=== PATIENT | female | born 1990 | race African-American/Black ===

== ENCOUNTER 2016-09-29 03:05 | Inpatient (IN) | payer MEDICAID ==
[2016-09-29] MEDS ORDERED: Sodium Chloride 0.9% 10 ML Syringe FLUSH PRN (03:48)
[2016-09-29] MEDS ORDERED: Sodium Chloride 0.9% 2.5 ML Syringe FLUSH PRN (03:48)
[2016-09-29] MEDS ORDERED: Methylergonovine 0.2 MG/1 ML Amp IM PRN (03:48)
[2016-09-29] MEDS ORDERED: Nalbuphine 10 MG/1 ML Vial IVPUSH PRN (03:48)
[2016-09-29] MEDS ORDERED: Butorphanol 1 MG/ML SDV IVPUSH PRN (03:48)
[2016-09-29] MEDS ORDERED: Lidocaine 1% 50 ML MDV INJECT PRN (03:48)
[2016-09-29] MEDS ORDERED: Carboprost Tromethamine 250 MCG/1 ML Amp IM PRN (03:48)
[2016-09-29] MEDS ORDERED: Water For Irrigation,Sterile 1,000 ML Container IRR PRN (03:48)
[2016-09-29] MEDS ORDERED: Misoprostol 200 MCG Tab PO PRN (03:48)
[2016-09-29] MEDS ORDERED: Lactated Ringers 1,000 ML IV SCH (04:00)
[2016-09-29] MEDS ORDERED: Oxytocin/Lactated Ringers 30 UNIT/500 ML BAG IV SCH (04:59)
[2016-09-29] MEDS ORDERED: Oxytocin/Lactated Ringers 30 UNIT/500 ML BAG ONE (08:13)
--- NOTE | 2016-09-29 09:01 | PCM.LDHP ---
L&D History of Present Illness - General Date of Service: 09/29/16 Admit Problem/Dx: Patient Status Order with Admit Dx/Problem 09/29/16 03:48 Patient Status [ADT] Routine Patient Status: Refer to Observation Admission Diagnosis/Problem: - planned Reason for Admit: active labor [facility] Nurse Unit Type: Labor and Delivery Admitting Physician: Sebastian Conley Attending Physician: Sebastian Conley Admission Diagnosis/Problem Admission Diagnosis/Problem - planned Source of Information: Patient History Limitations: Reports: No limitations - History of Present Illness Improves with: Reports: None Worsens with: Reports: None Associated Symptoms: Reports: N - Related Data Allergies/Adverse Reactions: Allergies Allergy/AdvReac Type Severity Reaction Status Date / Time No Known Allergies Allergy Verified 09/29/16 03:21 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: - Past Surgical History GI Surgical History: Reports: Appendectomy Social & Family History - Family History OBGYN: Reports: Endocrine/Metabolic: Reports: Diabetes, type II - Tobacco Use Smoking Status *Q: Never Smoker Second Hand Smoke Exposure: No - Caffeine Use Caffeine Use: Reports: None - Recreational Drug Use Recreational Drug Use: No H&P Review of Systems - Review of Systems: Review Of Systems: See Below General: Reports: no symptoms HEENT: Reports: no symptoms Pulmonary: Reports: no symptoms Cardiovascular: Reports: no symptoms Gastrointestinal: Reports: No symptoms Genitourinary: Reports: no symptoms Musculoskeletal: Reports: no symptoms Skin: Reports: no symptoms Psychiatric: Reports: no symptoms Neurological: Reports: no symptoms Hematologic/Lymphatic: Reports: no symptoms Immunologic: Reports: no symptoms L&D Exam - Exam Exam: See Below - Vital Signs Weight: 67.585 kg - OB Specific Fundal Height in cm: 36 Contraction Intensity: Moderate to Strong movement: active heart tones: present Presentation: Vertex - Patient Data Lab Results last 24 hrs: Laboratory Results - last 24 hr 09/29/16 09/29/16 09/29/16 Range/Units 03:02 04:05 04:05 WBC 5.37 (4.0-11.0) K/uL RBC 3.37 L (4.30-5.90) M/uL Hgb 9.6 L (12.0-16.0) g/dL Hct 28.5 L (36.0-46.0) % MCV 84.6 (80.0-98.0) fL MCH 28.5 (27.0-32.0) pg MCHC 33.7 (31.0-37.0) g/dL RDW Std Deviation 41.0 (28.0-62.0) fl RDW Coeff of [place] 14 (11.0-15.0) % Plt Count 177 (150-400) K/uL MPV 9.30 (7.40-12.00) fL Nucleated RBC % 0.0 /100WBC Nucleated RBCs # 0 K/uL Membrane Rupture POSITIVE Blood Type A POSITIVE Antibody Screen NEGATIVE Result Diagrams: 09/29/16 04:05 Problem List Initiated/Reviewed/Updated: Yes Orders Last 24hrs: Active Orders 24 hr Category Date Time Status Patient Status [ADT] Routine ADT 09/29/16 03:48 Active Heart Tones [RC] CONTINUOUS Care 09/29/16 03:48 Active Non Stress Test [RC] PER UNIT ROUTINE Care 09/29/16 03:22 Active Non Stress Test [RC] PER UNIT ROUTINE Care 09/29/16 03:48 Active May Shower [RC] ASDIRECTED Care 09/29/16 03:48 Active Notify Provider [RC] PRN Care 09/29/16 03:48 Active Up ad [place] [RC] ASDIRECTED Care 09/29/16 03:22 Active Up ad [place] [RC] ASDIRECTED Care 09/29/16 03:48 Active Vaginal Exam [RC] Click To Edit Care 09/29/16 03:22 Active Vaginal Exam [RC] PRN Care 09/29/16 03:48 Active Vital Signs [RC] PER UNIT ROUTINE Care 09/29/16 03:22 Active Vital Signs [RC] PER UNIT ROUTINE Care 09/29/16 03:48 Active Butorphanol [Stadol] Med 09/29/16 03:48 Active 1 mg IVPUSH Q1H PRN Carboprost Tromethamine [Hemabate DS] Med 09/29/16 03:48 Active 250 mcg IM ASDIRECTED PRN Lactated Ringers [Ringers, Lactated] 1,000 ml Med 09/29/16 04:00 Active IV ASDIRECTED Lidocaine 1% [Xylocaine 1%] Med 09/29/16 03:48 Active 50 ml INJECT .ONCE PRN Methylergonovine [Methergine] Med 09/29/16 03:48 Active 0.2 mg IM ASDIRECTED PRN Misoprostol [Cytotec] Med 09/29/16 03:48 Active 200 mcg PO .ONCE PRN Sodium Chloride 0.9% [Saline Flush] Med 09/29/16 03:48 Active 10 ml FLUSH ASDIRECTED PRN Sodium Chloride 0.9% [Saline Flush] Med 09/29/16 03:48 Active 2.5 ml FLUSH ASDIRECTED PRN Water For Irrigation,Sterile [Sterile Water for Med 09/29/16 03:48 Active Irrigation] 1,000 ml IRR ASDIRECTED PRN Scalp Electrode [WOMSER] Per Unit Routine Oth 09/29/16 03:48 Ordered Peripheral IV Insertion Adult [OM.PC] Routine Oth 09/29/16 03:48 Ordered Resuscitation Status Routine Resus Stat 09/29/16 03:22 Ordered Medication Orders Butorphanol Tartrate (Stadol) 1 mg IVPUSH Q1H PRN PRN Reason: Pain Carboprost Tromethamine (Hemabate Ds) 250 mcg IM ASDIRECTED PRN PRN Reason: Post Hemorrhage Lactated Ringer's (Ringers, Lactated) 1,000 mls @ 150 mls/hr IV ASDIRECTED KIM Lidocaine HCl (Xylocaine 1%) 50 ml INJECT .ONCE PRN PRN Reason: Laceration repair Methylergonovine Maleate (Methergine) 0.2 mg IM ASDIRECTED PRN PRN Reason: Post Hemorrhage Misoprostol (Cytotec) 200 mcg PO .ONCE PRN PRN Reason: Post Hemorrhage Sodium Chloride (Saline Flush) 10 ml FLUSH ASDIRECTED PRN PRN Reason: Keep Vein Open Sodium Chloride (Saline Flush) 2.5 ml FLUSH ASDIRECTED PRN PRN Reason: Keep Vein Open Sterile Water (Sterile Water For Irrigation) 1,000 ml IRR ASDIRECTED PRN PRN Reason: delivery Assessment/Plan Comment:: Term SROM Cx.5/c/v/0
[2016-09-29] MEDS ORDERED: Witch Hazel Medicated Pads 40/Jar TOP ONE (09:32)
[2016-09-29] MEDS ORDERED: Ibuprofen 800 MG Tab ONE (09:32)
[2016-09-29] MEDS ORDERED: Benzocaine/Menthol 20%-0.5% Spray 78 GM Cannister ONE (09:32)
[2016-09-29] MEDS ORDERED: Ibuprofen 400 MG Tab PO PRN (09:38)
[2016-09-29] MEDS ORDERED: Benzocaine/Menthol 20%-0.5% Spray 78 GM Cannister TOP PRN (09:38)
[2016-09-29] MEDS ORDERED: Witch Hazel Medicated Pads 40/Jar TOP PRN (09:38)
[2016-09-29] MEDS ORDERED: Ibuprofen 800 MG Tab PO PRN (09:38)
[2016-09-29] MEDS ORDERED: oxyCODONE 5 MG Tab PO PRN (09:38)
[2016-09-29] MEDS ORDERED: Lanolin 100% Cream 7 GM Tube TOP PRN (09:38)
[2016-09-29] MEDS ORDERED: Docusate Sodium 100 MG Cap PO PRN (09:38)
[2016-09-29] MEDS ORDERED: Acetaminophen 500 MG Tab PO PRN ×2 (09:38)
[2016-09-29] MEDS ORDERED: Bisacodyl 10 MG Supp RECTAL PRN (09:38)
[2016-09-29] MEDS ORDERED: Acetaminophen/HYDROcodone 325-5 MG Tab PO ONE (09:51)
--- NOTE | 2016-09-29 14:06 | OR ---
SURGEON: Sebastian Conley MD DATE OF PROCEDURE: DELIVERY NOTE: Ms. Fowler is 25 years old. She is para 1-0-0-1. She had a previous normal spontaneous vaginal delivery. 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 She had no complication. Her workup was essentially is normal. Her diabetes screen was negative. The patient was admitted early in this morning in active labor. At the time of admission, she was 5 cm. She have spontaneous rupture of the membrane that was confirmed. She was 5 cm vertex and complete at 0 station. heart rate was category 1. The patient declined to have epidural and she continued to have labor naturally. She progressed according to the curve and at 8 o'clock this morning, the patient became complete vertex and 0 station and she started pushing. The patient was able to accomplish normal spontaneous vaginal delivery, male fetus, score reported 8 and 9 and the weight is 8 pounds. The placenta delivered spontaneous, complete, and intact. There was mild perineal laceration in first-degree and it was infiltrated with 1% Xylocaine and repaired with 3-0 Vicryl without any problem. JAYA / JOSE /[id number]
[2016-09-30 08:08] VITALS: BP 105/63
--- NOTE | 2016-09-30 10:08 | PCM.PNPP ---
- General Info Date of Service: 09/30/16 Functional Status: Reports: pain controlled - Review of Systems General: Reports: no symptoms HEENT: Reports: no symptoms Pulmonary: Reports: no symptoms Cardiovascular: Reports: no symptoms Gastrointestinal: Reports: No symptoms Genitourinary: Reports: no symptoms Musculoskeletal: Reports: no symptoms Skin: Reports: no symptoms Neurological: Reports: no symptoms Psychiatric: Reports: no symptoms - General Info Date of Service: 09/30/16 - Patient Data Vital Signs - most recent: Last Vital Signs Temp 36.9 C 09/30/16 08:00 Pulse 74 09/30/16 04:00 Resp 16 09/30/16 08:00 BP 105/63 09/30/16 08:00 Pulse Ox 98 09/30/16 08:00 Weight - most recent: 67.585 kg Lab Results - last 24 hrs: Laboratory Results - last 24 hr 09/30/16 Range/Units 05:05 Hgb 8.6 L (12.0-16.0) g/dL Hct 25.6 L (36.0-46.0) % Med Orders - Current: Current Medications Acetaminophen (Tylenol Extra Strength) 500 mg PO Q4H PRN PRN Reason: Pain Acetaminophen (Tylenol Extra Strength) 1,000 mg PO Q4H PRN PRN Reason: Pain Last Admin: 09/30/16 05:17 Dose: 1,000 mg Benzocaine/Menthol (Dermoplast Pain Relief 20%-0.5% [place]) 78 gm TOP ASDIRECTED PRN PRN Reason: Perineal Comfort Measure Bisacodyl (Dulcolax) 10 mg RECTAL .ONCE PRN PRN Reason: Constipation Butorphanol Tartrate (Stadol) 1 mg IVPUSH Q1H PRN PRN Reason: Pain Carboprost Tromethamine (Hemabate Ds) 250 mcg IM ASDIRECTED PRN PRN Reason: Post Hemorrhage Docusate Sodium (Colace) 100 mg PO BID PRN PRN Reason: Constipation Emollient Ointment (Lansinoh Hpa) 0 gm TOP ASDIRECTED PRN PRN Reason: Sore Nipples Lactated Ringer's (Ringers, Lactated) 1,000 mls @ 150 mls/hr IV ASDIRECTED KIM Ibuprofen (Motrin) 400 mg PO Q4H PRN PRN Reason: Pain Ibuprofen (Motrin) 800 mg PO Q6H PRN PRN Reason: Pain Lidocaine HCl (Xylocaine 1%) 50 ml INJECT .ONCE PRN PRN Reason: Laceration repair Last Admin: 09/29/16 09:55 Dose: 50 ml Methylergonovine Maleate (Methergine) 0.2 mg IM ASDIRECTED PRN PRN Reason: Post Hemorrhage Misoprostol (Cytotec) 200 mcg PO .ONCE PRN PRN Reason: Post Hemorrhage Oxycodone HCl (Oxycodone) 5 mg PO Q2H PRN PRN Reason: Pain Last Admin: 09/29/16 22:36 Dose: 5 mg Sodium Chloride (Saline Flush) 10 ml FLUSH ASDIRECTED PRN PRN Reason: Keep Vein Open Sodium Chloride (Saline Flush) 2.5 ml FLUSH ASDIRECTED PRN PRN Reason: Keep Vein Open Sterile Water (Sterile Water For Irrigation) 1,000 ml IRR ASDIRECTED PRN PRN Reason: delivery Last Admin: 09/29/16 09:55 Dose: 1,000 ml [place] (Tucks) 1 pad TOP ASDIRECTED PRN PRN Reason: comfort care Discontinued Medications Acetaminophen/Hydrocodone Bitart ([place] 325-5 Mg) 1 tab PO ONETIME ONE Stop: 09/29/16 09:52 Last Admin: 09/29/16 09:55 Dose: 1 tab Benzocaine/Menthol (Dermoplast Pain Relief 20%-0.5% [place]) Confirm Administered Dose 78 gm .ROUTE .STK-MED ONE Stop: 09/29/16 09:33 Last Admin: 09/29/16 09:43 Dose: 1 sprays Oxytocin/Lactated Ringer's (Pitocin In Lr 30 Units/500 Ml) 30 unit in 500 mls @ 500 mls/hr IV TITRATE KIM PRN Reason: 500 MUNITS/MIN Stop: 09/29/16 05:58 Oxytocin/Lactated Ringer's (Pitocin In Lr 30 Units/500 Ml) Confirm Administered Dose 30 unit in 500 mls @ as directed .ROUTE .STK-MED ONE Stop: 09/29/16 08:14 Last Admin: 09/29/16 09:41 Dose: 30 unit Ibuprofen (Motrin) Confirm Administered Dose 800 mg .ROUTE .STK-MED ONE Stop: 09/29/16 09:33 Last Admin: 09/29/16 09:49 Dose: 800 mg Nalbuphine HCl (Nubain) 10 mg IVPUSH Q1H PRN PRN Reason: Pain (severe 7-10) Stop: 09/29/16 05:49 [place] (Tucks) Confirm Administered Dose 1 pad TOP .STK-MED ONE Stop: 09/29/16 09:33 Last Admin: 09/29/16 09:44 Dose: 1 applicful - Interaction Disposition, : in Room with Family Interaction: Holding Feeding: Attempted ; Nursed Fair/Poor Support Person: , Significant Other - Recovery Exam Fundal Tone: Firm Fundal Level: 1 Fingerbreadths Below Umbilicus Fundal Placement: Midline Lochia Amount: Scant Lochia Color: Rubra/Red Perineum Description: Intact, Minimal Bruising/Swelling Other Perinuem Description: Mild perenial laceration in 1st degree,repaired Episiotomy/Laceration: Approximated Bladder Status: Nonpalpable Urinary Elimination: Voided - Exam General: alert, oriented HEENT: Pupils equal Neck: supple Lungs: Clear to auscultation, Normal respiratory effort Cardiovascular: regular rate, regular rhythm Abdomen: bowel sounds present, soft, no tenderness, no distension Extremities: no edema Skin: warm, dry, intact Wound/Incisions: healing well Neurological: no new focal deficit Psy/Mental Status: alert, normal affect, normal mood - Problem List Review Problem List Initiated/Reviewed/Updated: Yes - My Orders Last 24 Hours: My Active Orders 09/29/16 09:38 Patient Status [ADT] Routine Vital Signs [RC] PER UNIT ROUTINE Acetaminophen [Tylenol Extra Strength] 1,000 mg PO Q4H PRN Acetaminophen [Tylenol Extra Strength] 500 mg PO Q4H PRN Benzocaine/Menthol [Dermoplast Pain Relief 20%-0.5% [place]] 78 gm TOP ASDIRECTED PRN Bisacodyl [Dulcolax] 10 mg RECTAL .ONCE PRN Docusate Sodium [Colace] 100 mg PO BID PRN Ibuprofen [Motrin] 400 mg PO Q4H PRN Ibuprofen [Motrin] 800 mg PO Q6H PRN Lanolin [Lansinoh HPA] See Dose Instructions TOP ASDIRECTED PRN [place] [Tucks] 1 pad TOP ASDIRECTED PRN oxyCODONE 5 mg PO Q2H PRN Assess Lochia [WOMSER] Per Unit Routine Assess Uterine Involution [WOMSER] Per Unit Routine Peripheral IV Discontinue [OM.PC] Routine - Plan Plan:: Term SROM Cx.5/c/v/0
== END 2016-09-30 12:40 | disposition home or self-care (01) | DRG 775 ==
LOC: MW.OBCHECK 03:05 → MW.OB 03:10 → MW.OBCHECK 03:48 → OBSVTOIN 09:13 → MW.OB 13:47
PROVIDERS: ADMIT Obstetrics & Gynecology; ATTEND Obstetrics & Gynecology
PROC: 10E0XZZ Delivery of Products of Conception, External Approach (ICD-10-PCS; principal; 2016-09-29)
PROC: 0HQ9XZZ Repair Perineum Skin, External Approach (ICD-10-PCS; 2016-09-29)
DX: O70.0 First degree perineal laceration during delivery (principal); Z3A.37 37 weeks gestation of pregnancy; Z37.0 Single live birth
CPT/HCPCS: 36415; 59025; 84112; 85014; 85018; 85027; 86850; 86900; 86901; A9270-GY

== ENCOUNTER → 2016-11-25 | Outpatient (CLI) | payer MEDICAID ==
[2016-11-29 14:04] LABS: HPV 16 Not Detected (NOTDET); HPV 18 Not Detected (NOTDET)
== END ==
LOC: MW.CHOBGYN 14:09
PROVIDERS: ATTEND Obstetrics & Gynecology
DX: Z12.4 Encounter for screening for malignant neoplasm of cervix (principal)
CPT/HCPCS: 87624; G0145

== ENCOUNTER 2017-09-07 07:40 | Emergency (ER) | payer MEDICAID ==
--- NOTE | 2017-09-07 07:53 | EDM.PDOC ---
ED HPI GENERAL MEDICAL PROBLEM - General Chief Complaint: Chest Pain Stated Complaint: HEADACHE Time Seen by Provider: 09/07/17 07:51 Source of Information: Reports: Patient History Limitations: Reports: No Limitations - History of Present Illness INITIAL COMMENTS - FREE TEXT/NARRATIVE: History of present illness: [] Review of systems: As per history of present illness and below otherwise all systems reviewed and negative. Past medical history: As per history of present illness and as reviewed below otherwise noncontributory. Surgical history: As per history of present illness and as reviewed below otherwise noncontributory. Social history: No reported history of drug or alcohol abuse. Family history: As per history of present illness and as reviewed below otherwise noncontributory. Physical exam: General: Well developed, well nourished in NAD HEENT: Atraumatic, normocephalic, pupils reactive, negative for conjunctival pallor or scleral icterus, mucous membranes moist, throat clear, neck supple, nontender, trachea midline. Lungs: Clear to auscultation, breath sounds equal bilaterally, chest nontender. Heart: S1S2, regular, negative for clicks, rubs, or JVD. Abdomen: Soft, nondistended, nontender. Negative for masses or hepatosplenomegaly. Negative for costovertebral tenderness. Pelvis: Stable nontender. Genitourinary: Deferred. Rectal: Deferred. Extremities: Atraumatic, negative for cords or calf pain. Neurovascular unremarkable. Neuro: Awake, alert, oriented. Cranial nerves II through XII unremarkable. Cerebellum unremarkable. Motor and sensory unremarkable throughout. Exam nonfocal. Diagnostics: [] Therapeutics: [] Impression: [] Plan: [] Definitive disposition and diagnosis as appropriate pending reevaluation and review of above. Left Chest Pain Score (Numeric/FACES): 5 - Related Data Allergies Allergy/AdvReac Type Severity Reaction Status Date / Time No Known Allergies Allergy Verified 09/07/17 07:51 Home Meds: Home Meds . 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: - Past Surgical History GI Surgical History: Reports: Appendectomy Social & Family History - Family History OBGYN: Reports: Endocrine/Metabolic: Reports: Diabetes, type II - Tobacco Use Smoking Status *Q: Never Smoker Second Hand Smoke Exposure: No - Caffeine Use Caffeine Use: Reports: None - Recreational Drug Use Recreational Drug Use: No ED ROS GENERAL - Review of Systems Review Of Systems: See Below (See history of present illness) - Physical Exam Exam: See Below (See history of present illness) Course - Vital Signs Last Recorded V/S: Last Vital Signs Temp 99.1 F 09/07/17 07:49 Pulse 93 09/07/17 07:49 Resp 16 09/07/17 07:49 BP 123/69 09/07/17 07:49 Pulse Ox 96 09/07/17 07:49 Departure - Discharge Information Referrals: Tevin Barksdale MD [Primary Care Provider] -
[2017-09-07] MEDS ORDERED: Sodium Chloride 0.9% 10 ML Syringe FLUSH PRN (08:02)
[2017-09-07] MEDS ORDERED: Sodium Chloride 0.9% 2.5 ML Syringe FLUSH PRN (08:02)
--- NOTE | 2017-09-07 08:02 | EDM.PDOC ---
ED HPI GENERAL MEDICAL PROBLEM - General Chief Complaint: Chest Pain Stated Complaint: HEADACHE Time Seen by Provider: 09/07/17 07:51 Source of Information: Reports: Patient History Limitations: Reports: No Limitations - History of Present Illness INITIAL COMMENTS - FREE TEXT/NARRATIVE: History of present illness: []Patient has had intermittent chest pain for 6 months mid chest to under her left breast. 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 Sent home from work because she was too weak and not feeling well. She denies any fevers, chills, cough or syncope. Review of systems: As per history of present illness and below otherwise all systems reviewed and negative. Past medical history: As per history of present illness and as reviewed below otherwise noncontributory. Surgical history: As per history of present illness and as reviewed below otherwise noncontributory. Social history: No reported history of drug or alcohol abuse. Family history: As per history of present illness and as reviewed below otherwise noncontributory. Physical exam: General: Well developed, well nourished in NAD HEENT: Atraumatic, normocephalic, pupils reactive, negative for conjunctival pallor or scleral icterus, mucous membranes moist, throat clear, neck supple, nontender, trachea midline. Lungs: Clear to auscultation, breath sounds equal bilaterally, chest nontender. Heart: S1S2, regular, negative for clicks, rubs, or JVD. Abdomen: Soft, nondistended, nontender. Negative for masses or hepatosplenomegaly. Negative for costovertebral tenderness. Pelvis: Stable nontender. Genitourinary: Deferred. Rectal: Deferred. Extremities: Atraumatic, negative for cords or calf pain. Neurovascular unremarkable. Neuro: Awake, alert, oriented. Cranial nerves II through XII unremarkable. Cerebellum unremarkable. Motor and sensory unremarkable throughout. Exam nonfocal. Diagnostics: []EKG normal no ischemic changes, chest x-ray negative, labs are normal Therapeutics: []GI cocktail with improvement Impression: []Acid reflux Plan: []Pepcid twice a day follow-up PMD Definitive disposition and diagnosis as appropriate pending reevaluation and review of above. Left Chest Pain Score (Numeric/FACES): 5 - Related Data Allergies Allergy/AdvReac Type Severity Reaction Status Date / Time No Known Allergies Allergy Verified 09/07/17 07:51 Home Meds: Home Meds . 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: - Past Surgical History GI Surgical History: Reports: Appendectomy Social & Family History - Family History Family Medical History: Noncontributory OBGYN: Reports: Endocrine/Metabolic: Reports: Diabetes, type II - Tobacco Use Smoking Status *Q: Never Smoker Second Hand Smoke Exposure: No - Caffeine Use Caffeine Use: Reports: None - Recreational Drug Use Recreational Drug Use: No ED ROS GENERAL - Review of Systems Review Of Systems: See Below (See history of present illness) ED EXAM, GENERAL - Physical Exam Exam: See Below (See history of present illness) Course - Vital Signs Last Recorded V/S: Last Vital Signs Temp 99.1 F 09/07/17 07:49 Pulse 93 09/07/17 07:49 Resp 16 09/07/17 07:49 BP 123/69 09/07/17 07:49 Pulse Ox 96 09/07/17 07:49 - Orders/Labs/Meds Orders: Active Orders 24 hr Category Date Time Status EKG Documentation Completion [RC] STAT Care 09/07/17 08:02 Active Chest 2V [CR] Stat Exams 09/07/17 08:02 Taken Sodium Chloride 0.9% [Saline Flush] Med 09/07/17 08:02 Active 10 ml FLUSH ASDIRECTED PRN Sodium Chloride 0.9% [Saline Flush] Med 09/07/17 08:02 Active 2.5 ml FLUSH ASDIRECTED PRN Saline Lock Insert [OM.PC] Stat Oth 09/07/17 08:02 Ordered Medication Orders Sodium Chloride (Saline Flush) 10 ml FLUSH ASDIRECTED PRN PRN Reason: Keep Vein Open Sodium Chloride (Saline Flush) 2.5 ml FLUSH ASDIRECTED PRN PRN Reason: Keep Vein Open Labs: Laboratory Tests 09/07/17 09/07/17 09/07/17 Range/Units 08:05 08:05 08:16 WBC 4.25 (4.0-11.0) K/uL RBC 4.38 (4.30-5.90) M/uL Hgb 13.2 (12.0-16.0) g/dL Hct 39.0 (36.0-46.0) % MCV 89.0 (80.0-98.0) fL MCH 30.1 (27.0-32.0) pg MCHC 33.8 (31.0-37.0) g/dL RDW Std Deviation 41.4 (28.0-62.0) fl RDW Coeff of [place] 13 (11.0-15.0) % Plt Count 195 (150-400) K/uL MPV 9.20 (7.40-12.00) fL Neut % (Auto) 60.2 (48.0-80.0) % Lymph % (Auto) 32.7 (16.0-40.0) % [place] % (Auto) 6.1 (0.0-15.0) % Eos % (Auto) 0.5 (0.0-7.0) % Baso % (Auto) 0.5 (0.0-1.5) % Neut # (Auto) 2.6 (1.4-5.7) K/uL Lymph # (Auto) 1.4 (0.6-2.4) K/uL [place] # (Auto) 0.3 (0.0-0.8) K/uL Eos # (Auto) 0.0 (0.0-0.7) K/uL Baso # (Auto) 0.0 (0.0-0.1) K/uL Nucleated RBC % 0.0 /100WBC Nucleated RBCs # 0 K/uL Sodium (136-146) mmol/L Potassium (3.5-5.1) mmol/L Chloride (98-110) mmol/L Carbon Dioxide (21-31) mmol/L BUN (6.0-23.0) mg/dL Creatinine (0.6-1.5) mg/dL Est Cr Clr Drug Dosing mL/min Estimated GFR (MDRD) ml/min Glucose (60-110) mg/dL Calcium (8.8-10.8) mg/dL Total Bilirubin (0.1-1.5) mg/dL AST (5-40) IU/L ALT (8-54) IU/L Alkaline Phosphatase (40-150) Troponin I (0.0-0.29) NG/ML Total Protein (6.0-8.0) g/dL Albumin (3.5-5.0) g/dL Globulin (2.0-3.5) g/dL Albumin/Globulin Ratio (1.3-2.8) Urine Color YELLOW Urine Appearance CLEAR Urine pH 6.0 (5.0-8.0) Ur Specific [place] >= 1.030 (1.001-1.035) Urine Protein NEGATIVE (NEGATIVE) mg/dL Urine Glucose (UA) NEGATIVE (NEGATIVE) mg/dL Urine Ketones >=80 (NEGATIVE) mg/dL Urine Occult Blood NEGATIVE (NEGATIVE) Urine Nitrite NEGATIVE (NEGATIVE) Urine Bilirubin SMALL H (NEGATIVE) Urine Ictotest NEGATIVE Urine Urobilinogen 1.0 (<2.0) EU/dL Ur Leukocyte Esterase NEGATIVE (NEGATIVE) Urine RBC 0-1 (0-2/HPF) Urine WBC 0-2 (0-5/HPF) Ur Epithelial Cells FEW (NONE-FEW) Amorphous Sediment LIGHT (NEGATIVE) Urine Bacteria 1+ H (NEGATIVE) Urine Mucus MODERATE (NONE-MOD) Urine HCG, Qual NEGATIVE (NEGATIVE) 09/07/17 Range/Units 08:16 WBC (4.0-11.0) K/uL RBC (4.30-5.90) M/uL Hgb (12.0-16.0) g/dL Hct (36.0-46.0) % MCV (80.0-98.0) fL MCH (27.0-32.0) pg MCHC (31.0-37.0) g/dL RDW Std Deviation (28.0-62.0) fl RDW Coeff of [place] (11.0-15.0) % Plt Count (150-400) K/uL MPV (7.40-12.00) fL Neut % (Auto) (48.0-80.0) % Lymph % (Auto) (16.0-40.0) % [place] % (Auto) (0.0-15.0) % Eos % (Auto) (0.0-7.0) % Baso % (Auto) (0.0-1.5) % Neut # (Auto) (1.4-5.7) K/uL Lymph # (Auto) (0.6-2.4) K/uL [place] # (Auto) (0.0-0.8) K/uL Eos # (Auto) (0.0-0.7) K/uL Baso # (Auto) (0.0-0.1) K/uL Nucleated RBC % /100WBC Nucleated RBCs # K/uL Sodium 138 (136-146) mmol/L Potassium 3.8 (3.5-5.1) mmol/L Chloride 108 (98-110) mmol/L Carbon Dioxide 22 (21-31) mmol/L BUN 13 (6.0-23.0) mg/dL Creatinine 0.8 (0.6-1.5) mg/dL Est Cr Clr Drug Dosing 95.05 mL/min Estimated GFR (MDRD) > 60.0 ml/min Glucose 80 (60-110) mg/dL Calcium 9.1 (8.8-10.8) mg/dL Total Bilirubin 0.9 (0.1-1.5) mg/dL AST 15 (5-40) IU/L ALT 21 (8-54) IU/L Alkaline Phosphatase 66 (40-150) Troponin I < 0.10 (0.0-0.29) NG/ML Total Protein 7.5 (6.0-8.0) g/dL Albumin 4.2 (3.5-5.0) g/dL Globulin 3.3 (2.0-3.5) g/dL Albumin/Globulin Ratio 1.3 (1.3-2.8) Urine Color Urine Appearance Urine pH (5.0-8.0) Ur Specific [place] (1.001-1.035) Urine Protein (NEGATIVE) mg/dL Urine Glucose (UA) (NEGATIVE) mg/dL Urine Ketones (NEGATIVE) mg/dL Urine Occult Blood (NEGATIVE) Urine Nitrite (NEGATIVE) Urine Bilirubin (NEGATIVE) Urine Ictotest Urine Urobilinogen (<2.0) EU/dL Ur Leukocyte Esterase (NEGATIVE) Urine RBC (0-2/HPF) Urine WBC (0-5/HPF) Ur Epithelial Cells (NONE-FEW) Amorphous Sediment (NEGATIVE) Urine Bacteria (NEGATIVE) Urine Mucus (NONE-MOD) Urine HCG, Qual (NEGATIVE) Meds: Medications Generic Name Dose Route Start Last Admin Trade Name Freq PRN Reason Stop Dose Admin Sodium Chloride 10 ml 09/07/17 08:02 Saline Flush FLUSH ASDIRECTED PRN Keep Vein Open Sodium Chloride 2.5 ml 09/07/17 08:02 Saline Flush FLUSH ASDIRECTED PRN Keep Vein Open Discontinued Medications Generic Name Dose Route Start Last Admin Trade Name Deja PRN Reason Stop Dose Admin Al Hydroxide/Mg Hydroxide 15 0 ml 09/07/17 08:21 09/07/17 08:38 ml/ Lidocaine HCl 5 ml PO 09/07/17 08:22 1 each ONETIME ONE Administration Departure - Departure Time of Disposition: 08:56 Disposition: Home, Self-Care 01 Condition: Good Clinical Impression: Acid reflux Qualifiers: Esophagitis presence: esophagitis presence not specified Qualified Code(s): K21.9 - Gastro-esophageal reflux disease without esophagitis Referrals: Tevin Barksdale MD [Primary Care Provider] - Forms: ED Department Discharge Additional Instructions: The following information is given to patients seen in the emergency department who are being discharged to home. This information is to outline your options for follow-up care. We provide all patients seen in our emergency department with a follow-up referral. The need for follow-up, as well as the timing and circumstances, are variable depending upon the specifics of your emergency department visit. If you don't have a primary care physician on staff, we will provide you with a referral. We always advise you to contact your personal physician following an emergency department visit to inform them of the circumstance of the visit and for follow-up with them and/or the need for any referrals to a consulting specialist. The emergency department will also refer you to a specialist when appropriate. This referral assures that you have the opportunity for follow-up care with a specialist. All of these measure are taken in an effort to provide you with optimal care, which includes your follow-up. Under all circumstances we always encourage you to contact your private physician who remains a resource for coordinating your care. When calling for follow-up care, please make the office aware that this follow-up is from your recent emergency room visit. If for any reason you are refused follow-up, please contact the [facility] Emergency Department at and asked to speak to the emergency department charge nurse. Acid twice a day follow-up with PMD [facility] [address] [place] [id number] - My Orders Last 24 Hours: My Active Orders 09/07/17 08:02 EKG Documentation Completion [RC] STAT Chest 2V [CR] Stat Sodium Chloride 0.9% [Saline Flush] 10 ml FLUSH ASDIRECTED PRN Sodium Chloride 0.9% [Saline Flush] 2.5 ml FLUSH ASDIRECTED PRN Saline Lock Insert [OM.PC] Stat - Assessment/Plan Last 24 Hours: My Active Orders 09/07/17 08:02 EKG Documentation Completion [RC] STAT Chest 2V [CR] Stat Sodium Chloride 0.9% [Saline Flush] 10 ml FLUSH ASDIRECTED PRN Sodium Chloride 0.9% [Saline Flush] 2.5 ml FLUSH ASDIRECTED PRN Saline Lock Insert [OM.PC] Stat
[2017-09-07] MEDS ORDERED: Alum Hydrox/Mag Hydrox/Simeth 15 ML, Lidocaine 2% 5 ML PO ONE ×2 (08:21)
[2017-09-07 08:44] LABS: CHLORIDE,CL 108 mmol/L (98-110); SODIUM,NA 138 mmol/L (136-146)
[2017-09-07 09:08] VITALS: BP 120/60
--- NOTE | 2017-09-08 14:17 | CR ---
EXAM DATE: 09/07/17 PATIENT'S AGE: 26 Patient: SERAFIN KIRKLAND Facility: [place], [place] Site . Site : 1990 Study: XRay Chest [id number] 8:36:21 AM Ordering Physician: Chato Irwin Final Report: INDICATION: Chest pain; shortness of breath. COMPARISON: None. TECHNIQUE: Two-view chest. FINDINGS: Normal size cardiac silhouette. Clear lung nichole without evidence of acute pneumonic infiltrates or CHF. No pneumothorax or pleural effusion. IMPRESSION: Negative chest. Dictated by Jennifer Alfaro MD @ Sep 07 2017 8:37AM (Electronic Signature) Report Signed by Proxy. ALO
== END 2017-09-07 09:08 | disposition home or self-care (01) ==
LOC: MW.ED 07:40
DX: K21.9 Gastro-esophageal reflux disease without esophagitis (principal); Z90.49 Acquired absence of other specified parts of digestive tract
CPT/HCPCS: 36415; 71046; 80053; 81001; 81025; 84484; 85025; 93005; 99285; A9270; 99283

== ENCOUNTER 2020-10-04 01:59 | Inpatient (IN) | payer MEDICAID ==
[2020-10-04] MEDS ORDERED: Sodium Chloride 0.9% 10 ML SDV IV PRN (02:22)
[2020-10-04] MEDS ORDERED: Sodium Chloride 0.9% 10 ML Syringe FLUSH PRN (02:22)
[2020-10-04] MEDS ORDERED: Ampicillin 2 GM in Sodium Chloride 0.9% 100 ML IV ONE (02:22)
[2020-10-04] MEDS ORDERED: Ondansetron 4 MG/2 ML SDV IVPUSH PRN (02:22)
[2020-10-04] MEDS ORDERED: Sodium Chloride 0.9% 2.5 ML Syringe FLUSH PRN (02:22)
[2020-10-04] MEDS ORDERED: Lidocaine 1% 50 ML MDV INJECT PRN (02:22)
[2020-10-04] MEDS ORDERED: Carboprost Tromethamine 250 MCG/1 ML Amp IM PRN (02:22)
[2020-10-04] MEDS ORDERED: Water For Irrigation,Sterile 1,000 ML Container IRR PRN (02:22)
[2020-10-04] MEDS ORDERED: Methylergonovine 0.2 MG/1 ML Amp IM PRN (02:22)
[2020-10-04] MEDS ORDERED: Tranexamic Acid 1,000 MG in Sodium Chloride 0.9% 100 ML IV PRN (02:22)
[2020-10-04] MEDS ORDERED: Misoprostol 200 MCG Tab PO PRN (02:22)
[2020-10-04] MEDS ORDERED: Butorphanol 1 MG/ML SDV IVPUSH PRN (02:22)
[2020-10-04] MEDS ORDERED: Nalbuphine 10 MG/1 ML Vial IVPUSH PRN (02:22)
[2020-10-04] MEDS ORDERED: Lactated Ringers 1,000 ML IV SCH (02:30)
[2020-10-04] MEDS ORDERED: Oxytocin/0.9 % Sodium Chloride 30 UNIT/500 ML BAG IV SCH (02:30)
[2020-10-04] MEDS ORDERED: oxyCODONE 5 MG Tab PO PRN (04:31)
[2020-10-04] MEDS ORDERED: Acetaminophen 500 MG Tab PO PRN (04:31)
[2020-10-04] MEDS ORDERED: Lanolin 100% Cream 7 GM Tube TOP PRN (04:31)
[2020-10-04] MEDS ORDERED: Benzocaine/Menthol 20%-0.5% Spray 78 GM Cannister TOP PRN (04:31)
[2020-10-04] MEDS ORDERED: Witch Hazel Medicated Pads 40/Jar TOP PRN (04:31)
[2020-10-04] MEDS ORDERED: Bisacodyl 10 MG Supp RECTAL PRN (04:31)
[2020-10-04] MEDS ORDERED: Docusate Sodium 100 MG Cap PO PRN (04:31)
--- NOTE | 2020-10-04 04:35 | PCM.DEL ---
L & D Note - General Info Date of Service: 10/04/20 Mother's Due Date: 10/13/20 - Delivery Note Labor: Spontaneous Delivery Outcome: Livebirth Infant Delivery Method: Spontaneous Vaginal Delivery-Single Presentation: Vertex Nuchal Cord: Present (x1), Reduced (after delivery of body) Anesthesia Type: Local Anesthetic: Lidocaine (Xylocaine) 1% Plain Local Anesthetic Volume: 5cc Amniotic Fluid Description: Meconium Stained Episiotomy Type: None Laceration: 2nd Degree Suture type: Vicryl Suture size: 2-0 Placenta: Intact, Spontaneous Cord: 3 Vessels Estimated Blood Loss: 200 Resuscitation Needed: No : Suctioned, Bulb Syringe, Stimulated, Warmed, [place] Used Score 1 min: 8 Score 5 min: 9 Delivery Comments (Free Text/Narrative):: Live female infant Limited care Received 1 dose of Ampicillin for GBS+ prophylaxis - General Info Date of Service: 10/04/20 - Patient Data Lab Results Last 24 Hours: Laboratory Results - last 24 hr 10/04/20 10/04/20 Range/Units 02:58 02:58 WBC 8.07 (4.0-11.0) K/uL RBC 3.51 L (4.30-5.90) M/uL Hgb 10.5 L (12.0-16.0) g/dL Hct 31.3 L (36.0-46.0) % MCV 89.2 (80.0-98.0) fL MCH 29.9 (27.0-32.0) pg MCHC 33.5 (31.0-37.0) g/dL RDW Std Deviation 45.9 (28.0-62.0) fl RDW Coeff of Concepc[place] 14 (11.0-15.0) % Plt Count 192 (150-400) K/uL MPV 9.50 (7.40-12.00) fL Nucleated RBC % 0.0 /100WBC Nucleated RBCs # 0 K/uL Blood Type A POSITIVE Antibody Screen NEGATIVE - Problem List & Annotations (1) Vaginal delivery SNOMED Code(s): 023480792 Code(s): O80 - ENCOUNTER FOR FULL-TERM UNCOMPLICATED DELIVERY Status: Acute Current Visit: Yes - Problem List Review Problem List Initiated/Reviewed/Updated: Yes - My Orders Last 24 Hours: My Active Orders 10/04/20 02:22 Butorphanol [Stadol] 1 mg IVPUSH Q1H PRN Carboprost Tromethamine [Hemabate DS] 250 mcg IM ASDIRECTED PRN Lidocaine 1% [Xylocaine 1%] 50 ml INJECT ONETIME PRN Methylergonovine [Methergine] 0.2 mg IM ASDIRECTED PRN Nalbuphine [Nubain] 10 mg IVPUSH Q1H PRN Ondansetron [Zofran] 4 mg IVPUSH Q6H PRN Sodium Chloride 0.9% [Normal Saline] 10 ml IV ASDIRECTED PRN Sodium Chloride 0.9% [Saline Flush] 10 ml FLUSH ASDIRECTED PRN Sodium Chloride 0.9% [Saline Flush] 2.5 ml FLUSH ASDIRECTED PRN Tranexamic Acid [Cyklokapron] 1,000 mg Sodium Chloride 0.9% [Normal Saline] 100 ml IV ONETIME Water For Irrigation,Sterile [Sterile Water for Irrigation] 1,000 ml IRR ASDIRECTED PRN miSOPROStoL [Cytotec] 200 mcg PO ONETIME PRN Resuscitation Status Routine 10/04/20 02:23 Heart Tones [RC] CONTINUOUS Non Stress Test [RC] PER UNIT ROUTINE May Shower [RC] ASDIRECTED Notify Provider [RC] PRN Up ad [place] [RC] ASDIRECTED Vaginal Exam [RC] PRN Vital Signs [RC] PER UNIT ROUTINE Scalp Electrode [WOMSER] Per Unit Routine Peripheral IV Insertion Adult [OM.PC] Routine 10/04/20 02:27 CORONAVIRUS COVID-19 WEN [MOLEC] Stat 10/04/20 02:30 Lactated Ringers [Ringers, Lactated] 1,000 ml IV ASDIRECTED Oxytocin/0.9 % Sodium Chloride [Oxytocin 30 Unit/500 ML-NS] 30 unit in 500 ml IV TITRATE 10/04/20 02:58 RPR (SYPHILIS SERO) W/ RFLX [REF] Routine 10/04/20 04:31 Patient Status [ADT] Routine May Shower [RC] ASDIRECTED Notify Provider Vital Signs [RC] ASDIRECTED Up ad [place] [RC] ASDIRECTED Vital Signs [RC] PER UNIT ROUTINE Acetaminophen [Tylenol Extra Strength] 1,000 mg PO Q6H PRN Benzocaine/Menthol [Dermoplast Pain Relief 20%-0.5% Flushing] 78 gm TOP ASDIRECTED PRN Docusate Sodium [Colace] 100 mg PO BID PRN Ibuprofen [Motrin] 800 mg PO Q8H PRN Lanolin [Lansinoh HPA] See Dose Instructions TOP ASDIRECTED PRN bisacodyL [Dulcolax] 10 mg RECTAL ONETIME PRN oxyCODONE 5 mg PO Q2H PRN witch Rachel [Tucks] 1 pad TOP ASDIRECTED PRN Assess Lochia [WOMSER] Per Unit Routine Assess Uterine Involution [WOMSER] Per Unit Routine Breast Pump [WOMSER] Per Unit Routine Ice Therapy [OM.PC] Per Unit Routine Perineal Care [OM.PC] Per Unit Routine Peripheral IV Discontinue [OM.PC] Routine Sitz Bath [OM.PC] Per Unit Routine 10/04/20 04:32 Cooling Warming Measures [RC] ASDIRECTED 10/04/20 Breakfast Regular Diet [DIET] 10/05/20 05:11 HEMOGLOBIN/HEMATOCRIT,HH [HEME] Timed - Assessment Assessment:: 29yo s/p at 38w5d - Plan Plan:: Admit to unit for routine care. Patient declined COVID swab, will treat as positive. Limited care.
[2020-10-04] MEDS: Ibuprofen 800 MG Tab PO PRN ×2 (04:49→14:03)
--- NOTE | 2020-10-04 07:51 | OR ---
SURGEON: Kimi Gonzales MD DATE OF PROCEDURE: 10/04/2020 PREOPERATIVE DIAGNOSES: 1. A 29-year-old, G5, P3-0-1-3 at 38 weeks and 5 days gestation. 2. Labor. 3. Limited care. 4. Group B Streptococcus positive. POSTOPERATIVE DIAGNOSES: 1. A 29-year-old G5, P4-0-1-4, 38 weeks and 5 days gestation. 2. Limited care. 3. Group B Streptococcus positive. Received 1 dose of ampicillin. 4. Second-degree perineal laceration. PRIMARY SURGEON: Kimi Gonzales MD PROCEDURE: Spontaneous vaginal delivery and repair of second-degree perineal laceration. ANESTHESIA: Local. ESTIMATED BLOOD LOSS: 200 mL. FINDINGS: Live female in cephalic presentation. score of 8 and 9 at one and five minutes respectively. Weight pending. Nuchal cord x1, reduced after delivery of body. Placenta intact with 3-vessel cord. Second-degree perineal laceration. INDICATIONS: This is a 29-year-old G5, P3-0-1-3, who presented at 38 weeks and 5 days gestation, complaining of contractions. Upon presentation, cervix was found to be 5 to 6 cm dilated with bulging bag of water. She was admitted to Labor and Delivery. She received a COVID swab. Group B Strep was positive and she received 1 dose of ampicillin for prophylaxis. She had spontaneous rupture of membranes with meconium fluid noted. She progressed to complete cervical dilation. DESCRIPTION OF PROCEDURE: I arrived to the room with the infant's head at +3 station. Over the next 2 contractions, the patient pushed and delivered a live male infant. Head was delivered followed by the shoulders and remainder of the body. Nuchal cord x1 was reduced after delivery of the body. The infant was placed on the maternal abdomen. After approximately 60 seconds, the cord was clamped and cut. Placenta then delivered intact with 3-vessel cord. Cord blood was obtained. The perineum was inspected and a second-degree perineal laceration was noted. This was repaired to anatomy and hemostasis with 2-0 Vicryl after infiltration with 1% lidocaine. Fundus was firm below the umbilicus. The patient and tolerated the delivery well. [id number] / MODL /[id number]
[2020-10-05] MEDS: Ibuprofen 800 MG Tab PO PRN (05:50)
[2020-10-05 07:40] VITALS: BP 131/70; PULSE 64
--- NOTE | 2020-10-05 08:24 | PCM.PNPP ---
- General Info Date of Service: 10/05/20 Subjective Update: Doing well thus far. Minimal lochia. Mild cramping. Functional Status: Reports: Pain Controlled, Tolerating Diet, Ambulating, Urinating - Review of Systems General: Reports: No Symptoms HEENT: Reports: No Symptoms Pulmonary: Reports: No Symptoms Cardiovascular: Reports: No Symptoms Gastrointestinal: Reports: No Symptoms Genitourinary: Reports: No Symptoms Musculoskeletal: Reports: No Symptoms Skin: Reports: No Symptoms Neurological: Reports: No Symptoms Psychiatric: Reports: No Symptoms - Patient Data Vital Signs - Most Recent: Last Vital Signs Temp 36.2 C 10/05/20 07:39 Pulse 64 10/05/20 07:39 Resp 15 10/05/20 07:39 BP 131/70 10/05/20 07:39 Pulse Ox 98 10/05/20 07:39 Weight - Most Recent: 83.915 kg Lab Results - Last 24 Hours: Laboratory Results - last 24 hr 10/05/20 Range/Units 05:56 Hgb 9.6 L (12.0-16.0) g/dL Hct 28.8 L (36.0-46.0) % - Interaction Disposition, : in Room with Family Infant Interaction: Holding Infant Feeding: Bottle Fed , Breastfed Infant; Nursed Well Support Person: - Recovery Exam Fundal Tone: Firm Fundal Level: 1 Fingerbreadths Below Umbilicus Fundal Placement: Midline Lochia Amount: Scant Other Perinuem Description: 2nd laceration repaired Bladder Status: Voiding Urinary Elimination: Voided - Exam General: Alert, Oriented Neck: Supple Lungs: Normal Respiratory Effort GI/Abdominal Exam: Soft, Non-Tender Extremities: No Pedal Edema Skin: Warm, Dry, Intact Neurological: No New Focal Deficit Psy/Mental Status: Alert, Normal Affect, Normal Mood - Problem List & Annotations (1) Vaginal delivery SNOMED Code(s): 968774929 Code(s): O80 - ENCOUNTER FOR FULL-TERM UNCOMPLICATED DELIVERY Status: Acute Current Visit: Yes - Problem List Review Problem List Initiated/Reviewed/Updated: Yes - Assessment Assessment:: 29yo s/p at 38w5d, PPD#1 - Plan Plan:: Patient desires discharge home today, though Food Critic recommends 48-hours of monitoring for baby due to GBS+ status and inadequate antibiotic prophylaxis. Recommend patient stay today for monitoring. If baby discharged home, okay with patient being discharged as well, as she is stable from an Obstetric standpoint. Reviewed discharge instructions.
== END 2020-10-05 16:00 | disposition home or self-care (01) | DRG 807 ==
LOC: MW.OBCHECK 01:59 → MW.OB 02:00 → MW.OBCHECK 03:59 → MW.OB 03:59 → OBSVTOIN 04:31 → MW.OB 06:15
PROVIDERS: ADMIT Obstetrics & Gynecology; ATTEND Obstetrics & Gynecology
PROC: 10E0XZZ Delivery of Products of Conception, External Approach (ICD-10-PCS; principal; 2020-10-04)
PROC: 0KQM0ZZ Repair Perineum Muscle, Open Approach (ICD-10-PCS; 2020-10-04)
DX: O77.0 Labor and delivery complicated by meconium in amniotic fluid (principal); Z37.0 Single live birth; O70.1 Second degree perineal laceration during delivery; O99.824 Streptococcus B carrier state complicating childbirth; Z3A.38 38 weeks gestation of pregnancy; O69.81X0 Labor and delivery complicated by cord around neck, without compression, not applicable or unspecified; Z20.822 Contact with and (suspected) exposure to COVID-19
CPT/HCPCS: 36415; 59025; 59409; 85014; 85018; 85027; 86592; 86850; 86900; 86901; A9270-GY; J0290; J2001; J2590; J7120; U0002